=== PATIENT | female | born 1955 | race Caucasian/White ===

== ENCOUNTER 2016-10-01 11:57 | Emergency (ER) | payer OTHER ==
--- NOTE | ~2016-10-01 | CR181 ---
[facility] A Service of [facility] RADIOLOGY TEXT RESULTS PATIENT: MIMA HORNE LOCATION: [facility] : 55 UNIT #: [id number] AGE: [address]: Sophie Romero APRN SEX: F ORDER DR: [id number] [facility] [address] [place], [place] [address] [id number] MR#: [id number] Acc #: [id number] NAME: MIMA HORNE : 1955 SEX: F STUDY DATE/TIME: 10/01/2016 12:11 UNIT: CFTX ROOM: STUDY DESCRIPTION: CR Lumbar Spine 2 or 3 Views Attending Physician: Sophie Romero A.P.R.N. Ordering Physician: Ed Doctor [id number] [facility] Primary Care Physician: Sai Cabrera M.D. MEDICAL IMAGING REPORT This report is preliminary unless electronic signature is present EXAM Lumbar series, 10/01/2016 INDICATION 61-year-old female with low back pain that is beginning to radiate down both legs. Fusion procedure 5 years ago. Symptoms began yesterday. No known injury. Lower extremity numbness and tingling bilaterally. TECHNIQUE 3 views of the lumbar spine were performed. COMPARISON No relevant comparisons. FINDINGS There is mild levoscoliosis centered at about the L3 level with secondary degenerative change. The patient is status post posterior fusion at L5-S1 and the surgical hardware appears intact. Vertebral body heights and alignment are preserved. There is degenerative disc disease that is most conspicuous at L3-4 and L2-3. There is spurring to a mild degree in the mid and upper lumbar levels. Degenerative facet arthropathy in the mid lumbar levels is mild to moderate in degree. Mild atherosclerotic change of the aorta. Probable laminectomy at L5. The bones are osteopenic. IMPRESSION 1. Postoperative changes of fusion at L5-S1. No acute fracture or malalignment. 2. Mild levoscoliosis and associated secondary degenerative change as described. Dictated by... Cachorro Haro M.D. [facility] A Service of [facility] & [facility] RADIOLOGY TEXT RESULTS PATIENT: MIMA HORNE LOCATION: [facility] : 55 UNIT #: [id number] AGE: [address]: Sophie Romero APRN SEX: F ORDER DR: THIS IS AN ELECTRONICALLY VERIFIED REPORT Cachorro Haro M.D. at 10/01/2016 5:25 PM Braden TD: 10/01/2016 13:05 JOB #: [id number] MEDICAL IMAGING REPORT Page 1 of 1 COPY
[~2016-10-01 11:57] MED LIST: ACULAR10 ML; ALBUTEROL17 GM; AMLODIPINE BESYL5 MG PO; AMLODIPINE-BEN1 EAC1 PO; BENZONATATE PO; BEPREVE10 ML OU; CELEXA20 MG PO; DARVOCET-N 1001 TAB PO; DICLOFENAC PO; FLEXERIL PO; FLEXERIL10 MG PO; HCTZ; IBUPROFEN; LASIX20 MG PO; LEVOTHROID75 MCG PO; LISINOPRIL10 MG PO; LORTAB 5/500 TA1 TA2 PO; MEDROL4 MG/DOSE- PO; MUCINEX D ER T1 EACH PO; MUCINEX DM1 TAB.SR .; NASACORT AQ16.5 GM; NITROGLYGERIN0.4 MG SL; OMEPRAZOLE20 M2 PO; REQUIP1 MG PO; SERTRALINE HCL50 MG PO; SYMBICORT INH; SYNTHROID; TOPAMAX; TRIAMCINOLONE A15 G6 EXT; VOLTAREN75 MG PO; ZADITOR; ZOLOFT; ZYRTEC10 M2 PO; [UNRECOGNIZED DRUG - OTHER] PO
== END 2016-10-01 13:32 | disposition home or self-care (01) ==
LOC: CFTX 11:57
DX: M54.5 Low back pain (principal); I10 Essential (primary) hypertension; J44.9 Chronic obstructive pulmonary disease, unspecified; Z88.2 Allergy status to sulfonamides; Z87.891 Personal history of nicotine dependence
CPT/HCPCS: 72100; 96372; 99283; J2270